=== PATIENT | female | born 1990 | race Two or more races ===

== ENCOUNTER 2016-12-24 06:27 | Inpatient (IN) | payer BC, MEDICAID ==
[~2016-12-24] VITALS: Ht 172.7 cm; Wt 91.6 kg
--- NOTE | ~2016-12-24 | OR ---
PATIENT'S NAME: KYREE LOCKE [facility] AGE: 26 Y [address] ROOM: [place] [address] LOCATION: GOBS ADMIT DATE: 12/24/2016 OR/Procedure Report DISCHARGE DATE: FAMILY PHYSICIAN: PHYSICIAN, NO ATTENDING PHYSICIAN: Clark Riddle SURGEON: Clark Riddle MD NOVELTY CANDY MAKER: None. DATE OF PROCEDURE: 12/24/2016 PREOPERATIVE DIAGNOSIS: Post dates intrauterine , successful induction of labor. POSTOPERATIVE DIAGNOSES: Post dates intrauterine , successful induction of labor with delivery of viable male infant. PROCEDURE: Vaginal delivery. ANESTHESIA: Epidural. ESTIMATED BLOOD LOSS: 100 mL. CLINICAL INDICATION: Kyree Agarwal is a 26-year-old , female, 2, para 1, at 41 weeks' gestational age. She was admitted for an induction of labor. FINDINGS: Delivery of a viable 9 pounds 1 ounce male infant, scores 10 at one minute, 10 at five minutes. umbilical arterial cord blood gas is pending at the time of this dictation. TECHNICAL PROCEDURE: The patient was left in the Labor and Delivery room, prepped and draped in the usual fashion. Labor epidural was sufficient for the delivery. She would deliver a viable 9 pounds 1 ounce male over an intact perineum. The umbilical cord was doubly clamped and the intervening segment cut. was handed off to the mother and later the awaiting nursing services. umbilical, arterial cord blood, and venous cord blood were obtained for blood gas analysis and routine studies respectively. Placenta delivered spontaneously intact with 3 vessels. Exploration of the cervix and vaginal sidewalls noted them to be intact. The patient tolerated the procedure well and remained in Labor and Delivery room in good condition, as did the infant. CALRK RIDDLE MD PATIENT'S NAME: KYREE LOCKE [facility] AGE: 26 Y [address] ROOM: [place] [address] LOCATION: [facility] ADMIT DATE: 12/24/2016 OR/Procedure Report DISCHARGE DATE: FAMILY PHYSICIAN: PHYSICIAN, NO ATTENDING PHYSICIAN: Clark Riddle DHW/modl /[id number] d: 12/25/16 0245 t: 01/04/17 0822, OPERATIVE SUMMARY
[~2016-12-24 06:27] MED LIST: PERCOCET 5-3251 EACH PO; PRENATAL 1+1)(P1 TAB PO
[2016-12-24 07:43] LABS: BASOPHIL % 0.3 %; EOSINOPHIL # 0.2 K/uL (0.0-0.5); EOSINOPHIL % 1.9 %; IMMATURE GRANULOCYTE # 0.1 K/uL (0.0-0.3); IMMATURE GRANULOCYTE % 0.8 %; LYMPHOCYTE # 3.1 K/uL (0.8-4.0); LYMPHOCYTE % 28.7 %; MCH 31.4 pg (27.0-34.0); MCHC 34.2 gm/dL (32.0-36.5); MCV 91.8 fl (83.0-98.0); MONOCYTE # 0.9 K/uL (0.0-1.0); MPV 10.7 fl (9.4-12.4); NEUTROPHIL # (ANC) 6.6 K/uL (1.8-7.8); NEUTROPHIL % 60.3 %; NRBC % 0 /100WBC (0-0.00); PLATELET COUNT 237 K/uL (150-450); RBC 4.14 M/uL (3.50-5.00); RDW-CV 13.2 % (11.9-14.6); WBC 10.9 K/uL (4.0-11.0)
[2016-12-24 22:14] LABS: BICARBONATE 24.7 mmol/L (18.0-23.0); PCO2 54 mmHg (35-45); PO2 17 mmHg (80-90)
--- NOTE | 2016-12-25 05:06 | NUR ---
VSS, no pain meds, IV saline locked, fundus firm, right, small flow
[2016-12-25 07:13] LABS: BASOPHIL % 0.1 %; EOSINOPHIL # 0.2 K/uL (0.0-0.5); EOSINOPHIL % 1.1 %; HEMATOCRIT 34.6 % (33.0-46.0); HEMOGLOBIN 11.8 g/dL (11.0-15.0); IMMATURE GRANULOCYTE # 0.1 K/uL (0.0-0.3); IMMATURE GRANULOCYTE % 0.5 %; LYMPHOCYTE # 3.1 K/uL (0.8-4.0); LYMPHOCYTE % 21.5 %; MCH 31.1 pg (27.0-34.0); MCHC 34.1 gm/dL (32.0-36.5); MCV 91.1 fl (83.0-98.0); MONOCYTE # 1.1 K/uL (0.0-1.0); MONOCYTE % 7.6 %; MPV 11.2 fl (9.4-12.4); NEUTROPHIL # (ANC) 10.1 K/uL (1.8-7.8); NEUTROPHIL % 69.2 %; NRBC % 0 /100WBC (0-0.00); PLATELET COUNT 222 K/uL (150-450); RDW-CV 13.2 % (11.9-14.6); WBC 14.6 K/uL (4.0-11.0)
--- NOTE | 2016-12-25 17:05 | NUR ---
Last VS: T:98.0 P:86 R: 17 BP: 118/59 Pain ratin Last pain med: Motrin Medicated at: 1710 Effective: Yes Breasts: SOFT Nipples: INTACT Fundus:FIRM, EVEN, MIDLINE Lochia: SMALL, RUBRA Epis/Perineum: TENDER Voiding well: YES Significant event: SHOWEREDT TODAY, HAS BEEN INDEPENDENT WITH CARES.
--- NOTE | 2016-12-26 05:22 | NUR ---
Significant Event: vss. no pain medicine given this shift. plans on home today Follow up:
[2016-12-26] MEDS ORDERED: PERCOCET 5-3251 EACH PO ×2 (11:27→11:32)
== END 2016-12-26 12:45 | disposition disaster alternative care site (69) | DRG 775 ==
LOC: GOBS 06:27 → GOBM 06:27 → GOBS 17:23
PROVIDERS: ADMIT Obstetrics & Gynecology
PROC: 3E033VJ Introduction of Other Hormone into Peripheral Vein, Percutaneous Approach (ICD-10-PCS; principal; 2016-12-24)
PROC: 10907ZC Drainage of Amniotic Fluid, Therapeutic from Products of Conception, Via Natural or Artificial Opening (ICD-10-PCS; principal; 2016-12-24)
PROC: 10E0XZZ Delivery of Products of Conception, External Approach (ICD-10-PCS; principal; 2016-12-24)
DX: O48.0 Post-term pregnancy (principal); Z88.0 Allergy status to penicillin; Z3A.41 41 weeks gestation of pregnancy; Z37.0 Single live birth
CPT/HCPCS: J2001; J2590; J3010; J7120